=== PATIENT | female | born 1955 | race Caucasian/White ===

== ENCOUNTER 2022-04-30 14:03 | Outpatient (CLI) | payer BC, SELFPAY ==
--- NOTE | 2022-04-30 14:40 | CRLHL7_ITS ---
For Patients: As a result of the Century Cures Act, medical imaging exams and procedure reports are released immediately into your electronic medical record. You may view this report before your referring provider. If you have questions, please contact your health care provider. BILATERAL SCREENING MAMMOGRAM WITH COMPUTER-AIDED DETECTION AND TOMOSYNTHESIS TECHNIQUE: CC and MLO views were obtained. These mammographic images have been obtained using full-field digital technique. These mammographic images were interpreted with the benefit of computer-aided detection. Breast Tomosynthesis was used in this interpretation. COMPARISON FILM: 01/15/20 screen, 10/04/17 diag, 09/21/17 screen. FINDINGS: There are scattered areas of fibroglandular density IMPRESSION: There is no radiographic evidence for malignancy. ASSESSMENT: BI-RADS Category 1: Negative RECOMMENDATION: Routine screening mammogram in 1 year. A lay language report of this examination will be provided to the patient. Humberto Cooper M.D. Diagnostic Radiologist [email or web address] JERICA/Dictated by: Humberto Cooper MD @ 05/04/2022 9:26:00 AM (Electronically Signed)
== END 2022-04-30 14:04 | disposition home or self-care (01) ==
LOC: MAMMO 14:05
PROVIDERS: Visit Provider Family Medicine
DX: Z12.31 Encounter for screening mammogram for malignant neoplasm of breast (principal)
CPT/HCPCS: 77063; 77067

== ENCOUNTER 2023-04-07 08:34 | Outpatient (CLI) | payer BC, SELFPAY ==
--- NOTE | 2023-04-07 08:25 | W.ANESCHARGE ---
Anesthesia Charges Start Date/Time Anesthesia Start Date: 04/07/23 Anesthesia Start Time: 10:05 Stop Date/Time Anesthesia Stop Date: 04/07/23 Anesthesia Stop Time: 10:27
--- NOTE | 2023-04-07 10:29 | W.ANESCHARGE ---
Anesthesia Charges Start Date/Time Anesthesia Start Date: 04/07/23 Anesthesia Start Time: 10:05 Stop Date/Time Anesthesia Stop Date: 04/07/23 Anesthesia Stop Time: 10:27
== END 2023-04-07 08:35 | disposition home or self-care (01) ==
LOC: OP CLINIC 08:35
PROVIDERS: PCP Family Medicine; Visit Provider Internal Medicine
DX: Z12.11 Encounter for screening for malignant neoplasm of colon (principal); K64.8 Other hemorrhoids; K57.30 Diverticulosis of large intestine without perforation or abscess without bleeding
CPT/HCPCS: 45378; 811; 812; J2704

== ENCOUNTER 2023-06-02 13:13 | Outpatient (CLI) | payer BC, SELFPAY | END 2023-06-02 13:14 | disposition home or self-care (01) | LOC: NFLDREF 13:17 | PROVIDERS: PCP Family Medicine; Visit Provider Family Medicine | DX: Z00.00 Encounter for general adult medical examination without abnormal findings (principal); E55.9 Vitamin D deficiency, unspecified; E78.5 Hyperlipidemia, unspecified; F31.9 Bipolar disorder, unspecified; E66.01 Morbid (severe) obesity due to excess calories | CPT/HCPCS: 80053; 80061; 80164; 80165; 82306 ==

== ENCOUNTER 2023-09-28 14:54 | Outpatient (CLI) | payer BC, SELFPAY ==
--- NOTE | 2023-09-28 15:30 | CRLHL7_ITS ---
For Patients: As a result of the Century Cures Act, medical imaging exams and procedure reports are released immediately into your electronic medical record. You may view this report before your referring provider. If you have questions, please contact your health care provider. DXA BONE MINERAL DENSITY STUDY Reason for exam: Screening. Current height (in): 73. Weight (lb): 300. Menopause age: 50. Ethnicity: White. 1. Have you had a previous hip or vertebral fracture? No. 2. Have you had any fractures during your adult life which did not result from significant trauma (e.g., auto accident)? No. 3. Did either of your parents have a hip fracture? No. 4. Do you smoke? No. 5. Have you ever taken Glucocorticoids? No. 6. Do you have rheumatoid arthritis? No. 7. Do you have secondary osteoporosis? No. 8. Do you drink 3 or more alcoholic drinks per day? No. 9. Are you being treated for osteoporosis? No. 10. Have you ever taken any of the following medications: Actonel, Evista, Fosamax, Miacalcin, Reclast, Boniva, Forteo, HRT (i.e. estrogen/hormone therapy), Protelos, Prolia, Vitamin D, Calcium, other ??? please specify. ANSWER: Yes, Vitamin D. 11. Do you have any of the following medical conditions: Anorexia or bulimia, asthma or emphysema, end stage renal disease, hyperparathyroidism, any seizure disorders, cancer, inflammatory bowel diseases, hysterectomy, other ??? please specify. ANSWER: Yes, hysterectomy. 12. What was your maximum height (inches)? 73. 13. Do you perform weight bearing exercise regularly? No. 14. Do you regularly consume dairy products? Yes. 15. Do you drink caffeinated beverages? Yes. 16. At what age did your period start? 19. 17. Are you premenopausal? No. 18. How many full term pregnancies have you had? 2. 19. Have you ever missed your period for more than 6 months in a row (not including or menopause)? Not provided. TECHNIQUE: Bone mineral density study was performed using the [employer]. FINDINGS: The results of the study expressed as bone mineral density (BMD) are as follows: Lumbar spine L1 to L4: BMD: 1.400 g/cm2. T-score: 3.2. Z-score: 5.1. Neck Left: BMD: 0.744 g/cm2. T-score: -0.9. Z-score: 0.6. Total Left: BMD: 1.061 g/cm2. T-score: 1.0. Z-score: 2.3. IMPRESSION: Normal bone density. *Comparison exams done prior to 01/2020 were performed on different unit, sigmacare. Humberto Cooepr M.D. Diagnostic Radiologist [email or web address] SP/Dictated by: Humberto Cooper MD @ 09/28/2023 3:50:00 PM (Electronically Signed)
== END 2023-09-28 14:55 | disposition home or self-care (01) ==
LOC: RAD 14:54
PROVIDERS: PCP Family Medicine; Visit Provider Family Medicine
DX: Z13.820 Encounter for screening for osteoporosis (principal); Z78.0 Asymptomatic menopausal state
CPT/HCPCS: 77080

== ENCOUNTER 2023-10-03 14:00 | Outpatient (RCR) | payer BC, SELFPAY ==
--- NOTE | 2023-09-12 09:51 | PT.OPEX ---
[facility] PT [facility] Outpatient Eval Start: 09/12/23 07:24 Freq: Status: Active Protocol: Document 09/12/23 07:25 CRP (Rec: 09/12/23 09:46 CRP [id number]) E-signed By Percy Lloyd PT Physical Therapy Outpatient Evaluation Insurance Information Insurance Name [employer] Medical Diagnosis Low Back Pain Other Chronic Pain Lumbar radiculopathy Cervicalgia Treating Diagnosis Neck pain LBP Referring MD Dr Burnett Subjective Subjective Pt c/o chronic neck pain and chronic LBP. Pt has had chronic pain of neck and back for her whole adult life. Neck pain is more L than R. Some pain into the shoulders but not down the arms. No numbness or tingling. Crunching in the neck and pain with trying to sleep. Will also have headaches. Pain is worse in the mornings. 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 There is pain with ROM but movement is ok. Had cervical fusion 92 of C5-6. Intermittent LBP that will increase with sitting, bending , lifting. Pain is at the upper hip and low back. Has had a couple of years of numbness/tingling into the L thigh. Pt does go to a therapist for fascial release. This has helped but not lasting. No specific exer currently. No low back surgeries. R hip replaced 2017. Has some ongoing issues of bilateral knee pain. Neck pain range 3-9/10 LBP range 3-9/10 Current Work Status [employer] Objective Range of Motion Cervical ROM Flex WNL Ext mod dec R rot min/mod dec L rot mod dec R SB min.mod dec L SB mod dec PROM L rot and L SB show moderate restriction Trunk ROM: FLex 25% dec Ext 25% dec with LBP R SB 25% dec with LBP L SB 25% dec with LBP Bilat rot 25-50% dec Bilat hip ROM WFL Bilat knee ROM WFL Strength Myotomes WNL BIlat hip flex, abd and ext weakness noted Poor deep cervical flex and ext strength Poor scap stability Palpation Significant myofascial pain interscap region Posture Forward head/ rounded shoulders Sensation/Reflexes Sensation intact to light touch Other/Pertinent Objective Segmental testing shows painful loss of mobility L C2- [address] junction Assessment Assessment/Impression Pt presents to the clinic with long standing issues of neck and back pain. Pt shows significant postural dysfunction of upper and lower quadrant. Pts presentation is characterized by painful hypomobility of the upper cervical spine, CT junction and lower lumbar spine. With this the pt also shows significant weakness with postural control, bilateral shoulders and bilateral LEs. Skilled PT is necessary to incorporate ther ex, nm karan, manual therapy and pt education to decrease pain and improve functional mobility. Primary Functional Limitations Lifting Sitting Sleeping bending Plan of Care Rehabilitation Potential Good Physical Therapy Goals 1. Pt will be 100% independent with HEP in 8 weeks. 2. Pt will do dishes with 75% decrease in LBP in 12 weeks. 3. Pt will sleep with 75% decrease in neck pain in 12 weeks. Coordination/Communication With Referral Source Treatment Plan/Direct Interventions Joint Mobilization,Manual Therapy,Neuromuscular Re-ed, Self-Care/Home Management, Therapeutic Activities, Therapeutic Exercises Frequency/Duration 1-2x/wk for 12 weeks Patient Will Be Discharged From Therapy Completion of LTG(s),Skills Plateau,Independent w/HEP, Independently Progressing Evaluation Billing Untimed Code Treatment Minutes 30 Complexity High Certification Information Physician Comment/Change : Physician NPI Number #
== END 2023-12-15 14:47 | disposition home or self-care (01) ==
PROVIDERS: PCP Family Medicine; Visit Provider Family Medicine
DX: M54.50 Low back pain, unspecified (principal); G89.29 Other chronic pain; M54.16 Radiculopathy, lumbar region; M54.2 Cervicalgia; Z51.89 Encounter for other specified aftercare
CPT/HCPCS: 97110; 97140; 97163

== ENCOUNTER 2024-09-28 09:02 | Emergency (ER) | payer BC, SELFPAY ==
[2024-09-28 09:31] VITALS: BP 180/92; PULSE 93; RESP 16; TEMP 36.7; O2SAT 96; BMI 44.1
[2024-09-28 11:24] LABS: Lactate* 1.5 mmol/L (0.5-1.9)
--- NOTE | 2024-09-28 11:28 | ED_ITS ---
HPI - General Adult General Chief complaint: Skin/Abscess/Foreign Body Stated complaint: Suspected cellulitis. Swollen,painful ankles Time Seen by Provider: 09/28/24 10:58 Source: patient Mode of arrival: ambulatory Limitations: no limitations History of Present Illness HPI narrative: Patient is a 69-year-old female presenting today with bilateral leg pain. She states that her legs have been swelling and getting redder and more painful or the last 2 weeks. She states in the last 2 days she developed a fever of 100, chills, nausea and vomiting. She denies abdominal pain or chest pain. No diarrhea. No urinary symptoms such as frequency, urgency or dysuria Related Data Home Medications ?Medication ?Instructions ?Recorded ?Confirmed prazosin 1 mg capsule 1 mg PO .Bedtime 09/07/22 09/28/24 quetiapine 50 mg tablet 50 - 100 mg PO .Bedtime 09/07/22 09/28/24 divalproex 500 mg tablet,extended 500 mg PO .Bedtime 06/02/23 09/28/24 release 24 hr Previous Rx's ?Medication ?Instructions ?Recorded furosemide 20 mg tablet 20 mg PO QDAY PRN edema #30 tabs 04/13/23 albuterol sulfate 90 mcg/actuation 2 puff inhalation Q4-6H PRN 02/01/24 aerosol inhaler shortness of breath or wheezing #6.7 grams cetirizine 10 mg tablet (All Day 10 mg PO QDAY #90 tabs 02/01/24 Allergy (cetirizine)) amitriptyline 10 mg tablet 10 - 50 mg (1 - 5 x 10 mg) PO QDAY 05/24/24 #90 tabs clindamycin HCl 150 mg capsule 450 mg (3 x 150 mg) PO TID 7 days 09/28/24 #63 caps Allergies Allergy/AdvReac Type Severity Reaction Status Date / Time Quinolones Allergy Severe hives, Verified 05/24/24 14:19 syncope,delerium tramadol Allergy Severe respiratory Verified 05/24/24 14:19 distress per past med rec received Sulfa (Sulfonamide Allergy Mild Verified 05/24/24 14:19 Antibiotics) tetracycline Allergy Mild Rash Verified 05/24/24 14:19 Cephalosporins Allergy Unknown Verified 05/24/24 14:19 piroxicam AdvReac Intermediate Nausea Verified 05/24/24 14:19 Review of Systems Status of ROS: Reports: 10 or more systems reviewed and unremarkable except as noted in History and below PFSH [facility] Medical History Screening due ?Z13.9 - Encounter for screening, unspecified (ICD-10) Surgical History Status post total replacement of right hip ?Z96.641 - Presence of right artificial hip joint (ICD-10) Status post breast lumpectomy ?Z98.890 - Other specified postprocedural states (ICD-10) History of right breast biopsy (02/12/13) ?Z98.890 - Other specified postprocedural states (ICD-10) History of hysterectomy (11/06/12) ?Z90.710 - Acquired absence of both cervix and uterus (ICD-10) History of appendectomy (11/06/12) ?Z90.49 - Acquired absence of other specified parts of digestive tract (ICD- 10) Social History What is your current living situation?: I presently have a place to live Problems where you live: no known problems In the past 12 months, utilities in danger of being shut off: no In past 12 months, lack of transportation kept you from medical appts, meetings, work, or getting things needed for daily living: no In the past 12 mos, have been you worried that your food would run out before you had money to buy more?: never true In the past 12 mos, the food you bought just didn't last and you didn't have money to buy more?: never true Smoking Status: Never smoker How often do you have a drink containing alcohol: never How often do you have six or more drinks on one occasion: Never AUDIT-C Alcohol total score: 0 Non-prescribed substance use: denies use How often does anyone, including family, friends and others, physically hurt you : never How often does anyone, including family, friends and others, insult or talk down to you: never How often does anyone, including family, friends and others, threaten you with harm: never How often does anyone, including family, friends and others, scream or curse at you: never service: No Exam Narrative: Exam Narrative: Obese, well-developed patient in no acute distress. Alert and oriented. Answers questions appropriately. Mood and affect are appropriate. Thoughts are goal oriented and rational. No tangential or magical thinking noted. Patient speaks in full sentences without needing to catch her breath. HEENT: Normocephalic atraumatic. Pupils are equally round reactive to light. Extraocular muscles are intact. Conjunctivae are moist without any icterus noted. Moist mucous membranes. Cardiovascular: Heart is regular rate and rhythm S1 and S2 are present without any murmurs. Lungs: Clear to auscultation bilaterally no wheezes rhonchi or rales are appreciated. Patient takes deep breaths without any discomfort. Abdomen: Soft and nontender nondistended with normal bowel sounds. Extremities: Bilateral lower extremities show trace to 1+ pitting edema bilater ally. Patient has circumferential erythema of the right lower extremity around the ankle. No tenderness with motion at the ankle including active or passive range of motion. She has a blister on the left lower extremity with surrounding erythema on the medial ankle. Skin: Well perfused. Const: Vital Signs, click to edit/add: Vital Signs - 24 hr 09/28/24 09:31 Temperature 98.0 F Pulse Rate [Right Pulse Oximeter] 93 Respiratory Rate 16 Blood Pressure [Ri ght Upper Arm] 180/92 H Pulse Oximetry 96 Oxygen Delivery Me thod Room Air Course Course ED Course: Symptoms appear classic for cellulitis, other differential diagnoses includes phlebolymphedema, dermatitis. Patient is given a dose of clindamycin while she was here and she has multiple antibiotic allergies. Blood work is unremarkable. Vital Signs Vital signs: Initial Vital Signs Temperature 98.0 F 09/28/24 09:31 Temperature Source Temporal Artery Scan 09/28/24 09:31 Pulse Rate 93 09/28/24 09:31 Respiratory Rate 16 09/28/24 09:31 Blood Pressure 180/92 H 09/28/24 09:31 Blood Pressure Mean 121 H 09/28/24 09:31 Blood Pressure Position Sitting 09/28/24 09:31 Pulse Oximetry 96 09/28/24 09:31 Oxygen Delivery Method Room Air 09/28/24 09:31 Vital Signs Temperature 98.0 F 09/28/24 09:31 Pulse Rate 93 09/28/24 09:31 Respiratory Rate 16 09/28/24 09:31 Blood Pressure 180/92 H 09/28/24 09:31 Pulse Oximetry 96 09/28/24 09:31 Oxygen Delivery Method Room Air 09/28/24 09:31 Temperature 98.0 F 09/28/24 09:31 Pulse Rate 93 09/28/24 09:31 Respiratory Rate 16 09/28/24 09:31 Blood Pressure 180/92 H 09/28/24 09:31 Pulse Oximetry 96 09/28/24 09:31 Oxygen Delivery Method Room Air 09/28/24 09:31 Medications Administered Medications: Discontinued Medications Generic Name Dose Route Start Last Admin Trade Name Freq PRN Reason Stop Dose Admin Clindamycin HCl 450 mg 09/28/24 11:06 09/28/24 11:29 Clindamycin 150 Mg Capsule PO 09/28/24 11:07 450 mg ONCE ONE Administration Medical Decision Making MDM Narrative Medical decision making narrative: 69-year-old female with a right lower extremity cellulitis, infection perhaps starting in the left lower extremity as well. Lab Data Labs: Lab Results 09/28/24 Range/Units 11:19 WBC 6.96 (4.50-11.00) K/uL RBC 4.24 (4.00-5.20) m/uL Hgb 12.4 (12.0-16.0) gm/dL Hct 39.9 (33.0-51.0) % MCV 94 (80-100) fL MCH 29 (26-34) pg MCHC 31 L (32-36) gm/dL RDW Coeff of Deborah 14.4 (11.5-15.5) % Plt Count 213 (140-440) K/uL Neut % (Auto) 55.7 (42.0-72.0) % Lymph % (Auto) 27.6 (20-44) % Labette % (Auto) 13.5 H (0.0-11.0) % Eos % (Auto) 2.7 (0.0-7.0) % Baso % (Auto) 0.4 (0.0-3.0) % Neut # (Auto) 3.87 (1.7-7.0) K/uL Lymph # (Auto) 1.92 (0.90-2.90) K/uL Labette # (Auto) 0.90 (0.00-0.90) K/UL Eos # (Auto) 0.19 (0.00-0.50) K/uL Baso # (Auto) 0.03 (0.00-0.30) K/uL Abs Immat Gran (auto) 0.01 (0.00-0.30) K/uL Imm/Tot Granulo (auto) 0.1 % Sodium 142 (135-149) mmol/L Potassium 4.1 (3.6-5.1) mmol/L Chloride 104 (96-114) mmol/L Carbon Dioxide 32 (20-32) mmol/L Anion Gap 6 L (7-15) mEq/L BUN 16 (7-30) mg/dL Creatinine 0.4 L (0.5-1.5) mg/dL Estimated Creat Clear 64.98 Estimated GFR 108 ml/min Glucose 90 (60-115) mg/dL Lactate 1.5 (0.5-1.9) mmol/L Calcium 9.0 (8.4-10.6) mg/dL C-Reactive Protein 1.6 H (0.5-1.0) mg/dL NT-Pro-B Natriuret Pep 46 pg/mL Discharge Plan Discharge Clinical Impression: Cellulitis Patient Disposition: Home, Self-Care Condition: Stable Instructions: Cellulitis (ED) Additional Instructions: Take all antibiotics as prescribed. If you feel like your symptoms are worsening over the next 48 hours instead of getting better, return to the ER or follow-up with your primary care doctor. Return to the emergency room if you develop weakness, lethargy, inability to eat. Prescriptions: New clindamycin HCl 150 mg capsule 450 mg PO TID 7 Days Qty: 63 0RF No Action prazosin 1 mg capsule 1 mg PO .Bedtime quetiapine 50 mg tablet 50 - 100 mg PO .Bedtime Rx Instructions: 1-2 tablets at bedtime divalproex 500 mg tablet extended release 24 hr 500 mg PO .Bedtime albuterol sulfate 90 mcg/actuation HFA aerosol inhaler 2 puff inhalation Q4-6H PRN (Reason: shortness of breath or wheezing) Qty: 6.7 1RF cetirizine [All Day Allergy (cetirizine)] 10 mg tablet 10 mg PO QDAY Qty: 90 3RF amitriptyline 10 mg tablet 10 - 50 mg PO QDAY Qty: 90 3RF furosemide 20 mg tablet 20 mg PO QDAY PRN (Reason: edema) Qty: 30 0RF Follow Up/Referrals: Oswaldo Burnett MD [Primary Care Provider] - Stand Alone Forms: [employer] Info Instructions
[2024-09-28] MEDS: CLINDAMYCIN 150 MG CAPSULE 450 MG PO (11:29)
[2024-09-28 11:30] LABS: Basophils Absolute Auto 0.03 K/uL (0.00-0.30); Basophils Percent Auto 0.4 % (0.0-3.0); Eosinophils Absolute Auto 0.19 K/uL (0.00-0.50); Eosinophils Percent Auto 2.7 % (0.0-7.0); Hematocrit 39.9 % (33.0-51.0); Hemoglobin* 12.4 gm/dL (12.0-16.0); Immature Granulocytes Abs Auto 0.01 K/uL (0.00-0.30); Immature Granulocytes Pct Auto 0.1 %; Lymphocytes Absolute Auto 1.92 K/uL (0.90-2.90); Lymphocytes Percent Auto 27.6 % (20-44); Mean Corpuscular HGB Conc 31 gm/dL (32-36); Mean Corpuscular Hemoglobin 29 pg (26-34); Mean Corpuscular Volume 94 fL (80-100); Monocytes Percent Auto 13.5 % (0.0-11.0); Neutrophils Absolute Auto 3.87 K/uL (1.7-7.0); Neutrophils Percent Auto 55.7 % (42.0-72.0); Platelet Count* 213 K/uL (140-440); RDW Coefficient of Variation % 14.4 % (11.5-15.5); Red Blood Count 4.24 m/uL (4.00-5.20); White Blood Count* 6.96 K/uL (4.50-11.00)
[2024-09-28 11:36] LABS: Slide Review Reflex No
[2024-09-28 11:44] LABS: Chloride* 104 mmol/L (96-114); Potassium* 4.1 mmol/L (3.6-5.1); Sodium* 142 mmol/L (135-149)
[2024-09-28 11:47] LABS: Creatinine* 0.4 mg/dL (0.5-1.5); Est. Creatinine Clearance* 64.98; Estimated Glomerular Filt Rate 108 ml/min
[2024-09-28 11:48] LABS: Anion Gap 6 mEq/L (7-15); Blood Urea Nitrogen* 16 mg/dL (7-30); Carbon Dioxide* 32 mmol/L (20-32); Glucose* 90 mg/dL (60-115)
[2024-09-28 11:51] LABS: C Reactive Protein* 1.6 mg/dL (0.5-1.0)
[2024-09-28 12:07] LABS: NT Pro B Type NatriureticPept* 46 pg/mL
[2024-09-28 12:40] LABS: PCR FLU A Negative PCR FLU A (Negative); PCR FLU B Negative PCR FLU B (Negative); SARS PCR* Negative SARS-CoV-2 (Negative)
== END 2024-09-28 12:25 | disposition home or self-care (01) ==
PROVIDERS: Emergency Provider Family Medicine; PCP Family Medicine
DX: L03.115 Cellulitis of right lower limb (principal); L03.116 Cellulitis of left lower limb
CPT/HCPCS: 36415; 80048; 83605; 83880; 85025; 86140; 87631; 99283; 99284; A9270

== ENCOUNTER 2025-01-22 09:54 | Outpatient (CLI) | payer BC, SELFPAY | END 2025-01-22 09:55 | disposition home or self-care (01) | LOC: NFLDREF 01-24 17:50 | PROVIDERS: PCP Family Medicine; Referring Provider Family Medicine; Visit Provider Family Medicine | DX: E78.5 Hyperlipidemia, unspecified (principal); F31.9 Bipolar disorder, unspecified; Z51.81 Encounter for therapeutic drug level monitoring | CPT/HCPCS: 80061; 80164; 80165 ==

== ENCOUNTER 2025-01-28 17:45 | Emergency (ER) | payer BC, SELFPAY ==
--- OUTSIDE RECORDS SUMMARY | 2025-01-28 17:48 | XMS_ITS | Clinical Summary ---
Author Organization [facility] Address [address], [place] [address] Care Team Providers Care Senior Teradata Developer Name Role Phone Oswaldo Burnett MD Primary Care Provider + [phone] Source Comments You are receiving this document as you are listed as the primary care provider,follow-up provider, or the patient has been referred to you for consultation.This is in compliance with the Medicare and[facility]centive [facility],which states Providers who transition their patient to another setting of careor provider of care or refers their patient to another provider of care shouldprovide summary care record for each transition of care or referral. Kera Encounters Date Type Department Care Team Description 11/02/2024 12:15 AM SHIP SURVEYOR Ancillary Procedure [facility] [address] [place] [address] 11/02/2024 12:10 AM SHIP SURVEYOR Ancillary Procedure [facility] [address] [place] [address] 11/02/2024 12:05 AM SHIP SURVEYOR Ancillary Procedure [facility] [address] [place] [address] 11/02/[address] [facility] [address] [place] [address] 11/01/2024 10:50 PM SHIP SURVEYOR Ancillary Procedure [facility] [address] [place] [id number] 11/01/2024 10:29 PM SHIP SURVEYOR - 11/02/2024 1:41 AM SHIP SURVEYOR [facility] [address] [place] [id number] Jose Carlton MD Blunt trauma to abdomen, initial encounter (Primary Dx); Acute pain of both knees; Fall down stairs, initial encounter; Back pain, unspecified back location, unspecified back pain laterality, unspecified chronicity; Neck pain; Cellulitis of right lower extremity Discharge Disposition: Home from Last 3 Months Social History Tobacco Use Types Packs/Day Years Used Date Smoking Tobacco: Never Assessed Humiliation, Afraid, Rape, and Kick questionnair e Answer Date Recorded Within the last year, have y ou been afraid of your partner or ex-partner? No 11/02/2024 Within the last year, have y ou been humiliated or emotionally abused in other ways by your partner or ex-partner? No Within the last year, have y ou been kicked, hit, slapped, or otherwise physically hurt by your partner or ex-partner? No 11/02/2024 Within the last year, have y ou been raped or forced to have any kind of sexual activity by your partner or ex-partner? No 11/02/2024 Comments No Sex and Gender Information Value Date Recorded Sex Assigned at Not on file Legal Sex Female 10:29 PM SHIP SURVEYOR Gender Identity Not on file Sexual Orientation Not on file Last Filed Vital Signs Vital Sign Reading Time Taken Comments Blood Pressure 129/69 11/02/2024 12:42 AM SHIP SURVEYOR Pulse 82 11/02/2024 12:43 AM SHIP SURVEYOR Temperature 36.8 C (98.2 F) 11/01/2024 10:43 PM SHIP SURVEYOR Respiratory Rate 20 11/01/2024 10:43 PM SHIP SURVEYOR Oxygen Saturation 97% 11/02/2024 12:42 AM SHIP SURVEYOR Inhaled Oxygen Concentration - - Weight 156 kg (344 lb) 11/01/2024 10:43 PM SHIP SURVEYOR Height 185.4 cm (6' 1) 11/01/2024 10:43 PM SHIP SURVEYOR Body Mass Index 45.39 11/01/2024 10:43 PM SHIP SURVEYOR Plan of Treatment Health Maintenance Due Date Last Done Comments Colon Cancer Screening Plan Due 1957 Diabetes Screening- (based o n age and BMI) 1957 Hep C Screening (Preventive Services) 1957 Mammogram 1957 Adult Preventive Visit 1975 DTaP/Tdap/Td Vaccine (1 - Tdap) 1976 Cholesterol 2002 Pneumococcal Vaccine 50+ Yrs (1 of 1 - PCV) 2007 Zoster/Shingles Vaccine (1 of 2) 2007 RSV Vaccine (1 - Risk 60-74 years 1-dose series) 2017 Dexa 2022 COVID-19 Vaccine (1 - 2023-2 5 season) 2024 Influenza Vaccine (Season Ended) 2025 HepA Vaccine Aged Out No longer eligi ble based on patient's age to complete this topic HepB Vaccine Aged Out No longer eligi ble based on patient's age to complete this topic Hib Vaccine Aged Out No longer eligi ble based on patient's age to complete this topic IPV (Polio) Vaccine Aged Out No longe r eligible based on patient's age to complete this topic MCV4 Vaccine Aged Out No longer eligi ble based on patient's age to complete this topic Meningococcal B Vaccine Aged Out No l onger eligible based on patient's age to complete this topic Procedures Procedure Name Priority Date/Time Associated Diagnosis Comments CT LUMBAR 2D RECONSTRUCTION STAT 11/02/2024 12:[address] THORSPINE RECONSTRUCTION STAT 11/02/2024 12:[address] ANGIO CHEST AND CT ABD PELVIS W IV CONT STAT 11/02/2024 12:[address] TRAUMA CERVICAL SCREEN T4-C1 STAT 11/02/2024 12:33 AM SHIP SURVEYOR CREATININE/GFR, WB POC Routine 11:42 PM SHIP SURVEYOR XR KNEE LT AP/MO/LAT (TRAUMA) STAT 11/01/2024 11:35 PM SHIP SURVEYOR XR KNEE RT AP/MO/LAT (TRAUMA) STAT 11/01/2024 11:35 PM SHIP SURVEYOR COMPLETE BLOOD COUNT-NO DIFF STAT 11/01/2024 11:09 PM SHIP SURVEYOR from Last 3 Months Results * CT Lumbar 2D Reconstruction (11/02/2024 12:45 AM SHIP SURVEYOR) Anatomical Region Laterality Modality T-Spine, Spine, Skeletal Compute d Tomography 11/02/2024 12:4 5 AM SHIP SURVEYOR Narrative 11/02/2024 12:52 AM SHIP SURVEYOR EXAM: CT LUMBAR 2D RECONSTRUCTION, CT THORSPINE RECONSTRUCTION LOCATION: [facility] DATE: 11/02/2024 INDICATION: Traumatic injury. COMPARISON: None. TECHNIQUE: Routine CT Lumbar thoracic and Spine without IV contrast. Multiplanar reformats. Dose reduction techniques were used. FINDINGS: VERTEBRA: Normal vertebral body heights and alignment. No fracture or posttraumatic subluxation. Benign T9 vertebral body hemangioma. CANAL/FORAMINA: No high-grade canal or neural foraminal stenosis. PARASPINAL: Please see dedicated CT chest abdomen pelvis for further findings. IMPRESSION: 1. No fracture or posttraumatic subluxation of the thoracic or lumbar spine. Procedure Note Leo Blood MD - 11/02/2024 EXAM: CT LUMBAR 2D RECONSTRUCTION, CT THORSPINE RECONSTRUCTION LOCATION: [facility] DATE: 11/02/2024 INDICATION: Traumatic injury. COMPARISON: None. TECHNIQUE: Routine CT Lumbar thoracic and Spine without IV contrast.Multiplanar reformats. Dose reduction techniques were used. FINDINGS: VERTEBRA: Normal vertebral body heights and alignment. No fracture orposttraumatic subluxation. Benign T9 vertebral body hemangioma. CANAL/FORAMINA: No high-grade canal or neural foraminal stenosis. PARASPINAL: Please see dedicated CT chest abdomen pelvis for furtherfindings. IMPRESSION: 1. No fracture or posttraumatic subluxation of the thoracic or lumbarspine. Jose Carlton MD RAD CT Final Result * CT Thorspine Reconstruction (11/02/2024 12:45 AM SHIP SURVEYOR) Anatomical Region Laterality Modality T-Spine, Spine, Skeletal Compute d Tomography 11/02/2024 12:4 5 AM SHIP SURVEYOR Narrative 11/02/2024 12:52 AM SHIP SURVEYOR EXAM: CT LUMBAR 2D RECONSTRUCTION, CT THORSPINE RECONSTRUCTION LOCATION: [facility] DATE: 11/02/2024 INDICATION: Traumatic injury. COMPARISON: None. TECHNIQUE: Routine CT Lumbar thoracic and Spine without IV contrast. Multiplanar reformats. Dose reduction techniques were used. FINDINGS: VERTEBRA: Normal vertebral body heights and alignment. No fracture or posttraumatic subluxation. Benign T9 vertebral body hemangioma. CANAL/FORAMINA: No high-grade canal or neural foraminal stenosis. PARASPINAL: Please see dedicated CT chest abdomen pelvis for further findings. IMPRESSION: 1. No fracture or posttraumatic subluxation of the thoracic or lumbar spine. Procedure Note Leo Blood MD - 11/02/2024 EXAM: CT LUMBAR 2D RECONSTRUCTION, CT THORSPINE RECONSTRUCTION LOCATION: [facility] DATE: 11/02/2024 INDICATION: Traumatic injury. COMPARISON: None. TECHNIQUE: Routine CT Lumbar thoracic and Spine without IV contrast.Multiplanar reformats. Dose reduction techniques were used. FINDINGS: VERTEBRA: Normal vertebral body heights and alignment. No fracture orposttraumatic subluxation. Benign T9 vertebral body hemangioma. CANAL/FORAMINA: No high-grade canal or neural foraminal stenosis. PARASPINAL: Please see dedicated CT chest abdomen pelvis for furtherfindings. IMPRESSION: 1. No fracture or posttraumatic subluxation of the thoracic or lumbarspine. Jose Carlton MD RAD CT Final Result * CT Angio Chest And CT Abd Pelvis W IV Cont (11/02/2024 12:42 AM SHIP SURVEYOR) Anatomical Region Laterality Modality Abdomen, Pelvis, Chest, Lung, Vascular Computed Tomography 11/02/2024 12:4 2 AM SHIP SURVEYOR Narrative 11/02/2024 12:55 AM SHIP SURVEYOR EXAM: CT ANGIO CHEST AND CT ABD PELVIS W IV CONT LOCATION: [facility] DATE: 11/02/2024 INDICATION: Trauma. COMPARISON: None available. TECHNIQUE: CT angiogram chest and routine CT abdomen pelvis with IV contrast. Arterial phase through the chest and venous phase through the abdomen and pelvis. 2D and 3D MIP reconstructions were preformed by the dental technologist. Dose reduction techniques were used. CONTRAST: IOHEXOL 350 MG/ML IV SOLN 125 mL FINDINGS: ANGIOGRAM CHEST: No evidence of thoracic aortic aneurysm or dissection. No significant atheromatous disease. No acute pulmonary embolism. LUNGS AND PLEURA: Trachea and large airways are patent. Mild dependent atelectatic change. Left lower lobe calcified granuloma. Few sub-6 mm pulmonary nodules. No pneumothorax. No pleural effusion. MEDIASTINUM/AXILLAE: No mediastinal/hilar lymphadenopathy. Thoracic esophagus is unremarkable. No axillary lymphadenopathy. Chest wall is unremarkable. Mild left atrial enlargement. No pericardial effusion. Tiny air embolus within the right ventricle, likely iatrogenic. CORONARY ARTERY CALCIFICATION: None. HEPATOBILIARY: Mild hepatomegaly. Low-attenuation subcentimeter liver lesion(s) compatible with benign cysts or other benign lesions. No specific evaluation or follow-up is recommended in a low risk patient. Gallbladder is normal. No intrahepatic or intrahepatic biliary ductal dilatation. PANCREAS: Enhances normally. No peripancreatic inflammatory fat stranding. SPLEEN: Enhances normally. Normal size. ADRENAL GLANDS: Normal. KIDNEYS: Both kidneys enhance symmetrically, without hydronephrosis. Bilateral parapelvic and simple parenchymal cysts; no further follow-up recommended. No nephroureterolithiasis. Urinary bladder is unremarkable. PELVIC ORGANS: Hysterectomy. BOWEL: No evidence of acute gastrointestinal inflammation or obstruction. Colonic diverticulosis. Normal appendix. No intraperitoneal free fluid or free air. Moderate-sized fat-containing right of midline periumbilical hernia. LYMPH NODES: No suspicious abdominal or pelvic lymphadenopathy. VASCULATURE: No abdominal aortic aneurysm. Mild atheromatous disease. MUSCULOSKELETAL: Right hip arthroplasty. Prominent hemangioma of the T10 vertebral body. OTHER: No additionally significant abnormalities. IMPRESSION: 1. No acute posttraumatic abnormality of the chest, abdomen, or pelvis. 2. Mild hepatomegaly. 3. Colonic diverticulosis. 4. Few sub-6 mm pulmonary nodules. Follow-up is recommended according to Fleischner criteria, as detailed below. Fleischner Society Recommendations for Pulmonary Nodules Nodule size less than 6 mm: Single or multiple nodules: Nodules < 6 mm do not require routine follow-up, but certain patients at high risk with suspicious nodule morphology, upper lobe location, or both may warrant 12- month follow-up. Procedure Note Cornelius Ralph MD - 11/02/2024 EXAM: CT ANGIO CHEST AND CT ABD PELVIS W IV CONT LOCATION: [facility] DATE: 11/02/2024 INDICATION: Trauma. COMPARISON: None available. TECHNIQUE: CT angiogram chest and routine CT abdomen pelvis with IVcontrast. Arterial phase through the chest and venous phase through theabdomen and pelvis. 2D and 3D MIP reconstructions were preformed by the CTtechnologist. Dose reduction techniques were used. CONTRAST: IOHEXOL 350 MG/ML IV SOLN 125 mL FINDINGS: ANGIOGRAM CHEST: No evidence of thoracic aortic aneurysm or dissection. Nosignificant atheromatous disease. No acute pulmonary embolism. LUNGS AND PLEURA: Trachea and large airways are patent. Mild dependentatelectatic change. Left lower lobe calcified granuloma. Few sub-6 mm pulmonary nodules. No pneumothorax. No pleural effusion. MEDIASTINUM/AXILLAE: No mediastinal/hilar lymphadenopathy. Thoracic esophagus is unremarkable. No axillary lymphadenopathy. Chest wall is unremarkable. Mild left atrial enlargement. No pericardial effusion. Tiny air emboluswithin the right ventricle, likely iatrogenic. CORONARY ARTERY CALCIFICATION: None. HEPATOBILIARY: Mild hepatomegaly. Low-attenuation subcentimeter liverlesion(s) compatible with benign cysts or other benign lesions. Nospecific evaluation or follow-up is recommended in a low risk patient. Gallbladder is normal. No intrahepatic or intrahepatic biliary ductal dilatation. PANCREAS: Enhances normally. No peripancreatic inflammatory fatstranding. SPLEEN: Enhances normally. Normal size. ADRENAL GLANDS: Normal. KIDNEYS: Both kidneys enhance symmetrically, without hydronephrosis.Bilateral parapelvic and simple parenchymal cysts; no further follow-uprecommended. No nephroureterolithiasis. Urinary bladder is unremarkable. PELVIC ORGANS: Hysterectomy. BOWEL: No evidence of acute gastrointestinal inflammation or obstruction.Colonic diverticulosis. Normal appendix. No intraperitoneal free fluid or free air. Moderate-sized fat-containingright of midline periumbilical hernia. LYMPH NODES: No suspicious abdominal or pelvic lymphadenopathy. VASCULATURE: No abdominal aortic aneurysm. Mild atheromatous disease. MUSCULOSKELETAL: Right hip arthroplasty. Prominent hemangioma of the [id number] body. OTHER: No additionally significant abnormalities. IMPRESSION: 1. No acute posttraumatic abnormality of the chest, abdomen, or pelvis. 2. Mild hepatomegaly. 3. Colonic diverticulosis. 4. Few sub-6 mm pulmonary nodules. Follow-up is recommended according toFleischner criteria, as detailed below. Fleischner Society Recommendations for Pulmonary Nodules Nodule size less than 6 mm: Single or multiple nodules: Nodules < 6 mm do not require routine follow-up, but certain patients athigh risk with suspicious nodule morphology, upper lobe location, or bothmay warrant 12- month follow-up. us Jose Carlton MD RAD CT Final Result * CT Trauma Cervical Screen T4-C1 (11/02/2024 12:33 AM SHIP SURVEYOR) Anatomical Region Laterality Modality Spine, Neck, Skeletal, C-Spine C omputed Tomography 11/02/2024 12:3 3 AM SHIP SURVEYOR Narrative 11/02/2024 12:38 AM SHIP SURVEYOR EXAM: CT TRAUMA CERVICAL SCREEN T4-C1 LOCATION: [facility] DATE: 11/02/2024 INDICATION: Traumatic injury COMPARISON: None. TECHNIQUE: Routine CT Cervical Spine without IV contrast. Multiplanar reformats. Dose reduction techniques were used. FINDINGS: VERTEBRA: Normal vertebral body heights and alignment. No fracture or posttraumatic subluxation. Fusion across C5-C6. CANAL/FORAMINA: Multilevel spondylosis without high grade canal stenosis. PARASPINAL: No extraspinal abnormality. Visualized lung daugherty are clear. IMPRESSION: 1. No CT evidence for acute fracture or post traumatic subluxation. Procedure Note Leo Blood MD - 11/02/2024 EXAM: CT TRAUMA CERVICAL SCREEN T4-C1 LOCATION: [facility] DATE: 11/02/2024 INDICATION: Traumatic injury COMPARISON: None. TECHNIQUE: Routine CT Cervical Spine without IV contrast. Multiplanarreformats. Dose reduction techniques were used. FINDINGS: VERTEBRA: Normal vertebral body heights and alignment. No fracture orposttraumatic subluxation. Fusion across C5-C6. CANAL/FORAMINA: Multilevel spondylosis without high grade canalstenosis. PARASPINAL: No extraspinal abnormality. Visualized lung daugherty areclear. IMPRESSION: 1. No CT evidence for acute fracture or post traumatic subluxation. us Jose Carlton MD RAD CT Final Result * (ABNORMAL) Creatinine/GFR, WB POC (11/01/2024 11:42 PM SHIP SURVEYOR) Creatinine, Whole Blood 0.5(L) 0.6 - 1.0 mg/dL 11/01/2024 11:49 PM SHIP SURVEYOR [facility] Performing Location [facility] C 11/01/2024 11:49 PM SHIP SURVEYOR [facility] GFR, Estimated >60 >60 mL/min/1.7 3m2 11/01/2024 11:49 PM SHIP SURVEYOR [facility] Blood 11/01/2024 11:4 2 PM SHIP SURVEYOR 11/01/2024 11:49 PM SHIP SURVEYOR us Jose Carlton MD LAB_[email or web address] Final Result [facility] [address] [place] [address], [facility] * XR Knee Lt AP/MO/Lat (Trauma) (11/01/2024 11:35 PM SHIP SURVEYOR) Anatomical Region Laterality Modality Lower Extremity, Knee Computed R adiography 11/01/2024 11:3 5 PM SHIP SURVEYOR Narrative 11/01/2024 11:48 PM SHIP SURVEYOR EXAM: XR KNEE LT AP/MO/LAT (TRAUMA) LOCATION: [facility] DATE: 11/01/2024 INDICATION: Fracture, TRAUMA COMPARISON: None. IMPRESSION: Mild osteopenia. 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 No acute, displaced fracture. Trace suprapatellar knee joint effusion. Procedure Note Newton Green MD - 11/01/2024 EXAM: XR KNEE LT AP/MO/LAT (TRAUMA) LOCATION: [facility] DATE: 11/01/2024 INDICATION: Fracture, TRAUMA COMPARISON: None. IMPRESSION: Mild osteopenia. Tricompartmental osteoarthritis, worst in thepatellofemoral compartment. No acute, displaced fracture. Tracesuprapatellar knee joint effusion. us Jose Carlton MD RAD GD Final Result * XR Knee Rt AP/MO/Lat (Trauma) (11/01/2024 11:35 PM SHIP SURVEYOR) Anatomical Region Laterality Modality Lower Extremity, Knee Computed R adiography 11/01/2024 11:3 5 PM SHIP SURVEYOR Narrative 11/01/2024 11:49 PM SHIP SURVEYOR EXAM: XR KNEE RT AP/MO/LAT (TRAUMA) LOCATION: [facility] DATE: 11/01/2024 INDICATION: Fracture, TRAUMA COMPARISON: None. IMPRESSION: Mild osteopenia. Tricompartmental arthritic change, worst in the patellofemoral compartment. No acute, displaced fracture or dislocation. No significant knee joint effusion. Procedure Note Newton Green MD - 11/01/2024 EXAM: XR KNEE RT AP/MO/LAT (TRAUMA) LOCATION: [facility] DATE: 11/01/2024 INDICATION: Fracture, TRAUMA COMPARISON: None. IMPRESSION: Mild osteopenia. Tricompartmental arthritic change, worst inthe patellofemoral compartment. No acute, displaced fracture ordislocation. No significant knee joint effusion. Jose Carlton MD RAD GD Final Result * Complete Blood Count no Diff (11/01/2024 11:09 PM SHIP SURVEYOR) WBC 9.3 3.5 - 10.5 x10(9)/L 11/01/2024 11:28 PM [facility] RBC 4.57 3.90 - 5.03 x10(12)/L 11/01/2024 11:28 PM [facility] Hemoglobin 13.2 12.0 - 15.5 g/dL 11/01/2024 11:28 PM [facility] HCT 41.4 34.9 - 44.5 % 11/01/2024 11:28 PM [facility] MCV 90.6 80.0 - 100.0 fL 11/01/2024 11:28 PM [facility] MCH 28.9 27.6 - 33.3 pg 11/01/2024 11:28 PM [facility] MCHC 31.9 31.5 - 35.2 g/dL 11/01/2024 11:28 PM [facility] RDW 13.9 11.9 - 15.5 % 11/01/2024 11:28 PM [facility] Platelets 208 150 - 450 x10(9)/L 11/01/2024 11:28 PM [facility] Automated NRBC 0 <=0 /100 WBC 11/01/2024 11:28 PM [facility] Blood Venipuncture / Unknown 11/01/2024 11:09 PM SHIP SURVEYOR 11/01/2024 11:24 PM SHIP SURVEYOR Jose Carlton MD LAB_1 Final Result [address] [address], [facility] from Last 3 Months Insurance MEDICARE PART A [facility] Care Teams Senior Teradata Developer Relationship Specialty Start Date End Date Oswaldo Burnett MD [address] [place] [address] PCP - General 11/02/24
[2025-01-28 18:12] VITALS: BP 165/106; PULSE 77; RESP 18; TEMP 36.4; O2SAT 98; BMI 43.3
--- NOTE | 2025-01-28 19:27 | ED.ANIMALBIT ---
HPI - Animal Bite General Time Seen by Provider: 19:27 Date Seen: 01/28/25 Chief Complaint: Animal Bite Stated Complaint: Cat bite Time Seen by Provider: 01/28/25 19:10 Source: patient and RN notes reviewed Mode of arrival: ambulatory Limitations: no limitations History of Present Illness HPI narrative: This 69-year-old female is coming into the ER with concern of cat bite. Patient has a kitten that his never been outside that bit her today. It bit her in the back of the neck around 4:00 p.m.. She has scratches elsewhere on her body from the skin. He is not ill, acting normally. He is going to the vent tomorrow for his 1st immunizations and vent appointment. She will discuss with the vet further. She is concerned as she has had cat bite infections. She is not allergic to penicillin. Her tetanus is up-to-date in 2023. MD complaint: animal bite Related Data Home Medications ?Medication ?Instructions ?Recorded ?Confirmed prazosin 1 mg capsule 1 mg PO .Bedtime 09/07/22 01/28/25 quetiapine 50 mg tablet 50 - 100 mg PO .Bedtime 09/07/22 01/28/25 divalproex 500 mg tablet,extended 500 mg PO .Bedtime 06/02/23 01/28/25 release 24 hr olanzapine 10 mg tablet 10 mg PO QDAY 01/22/25 01/28/25 Previous Rx's ?Medication ?Instructions ?Recorded furosemide 20 mg tablet 20 mg PO QDAY PRN edema #30 tabs 04/13/23 albuterol sulfate 90 mcg/actuation 2 puff inhalation Q4-6H PRN 02/01/24 aerosol inhaler shortness of breath or wheezing #6.7 grams cetirizine 10 mg tablet (All Day 10 mg PO QDAY #90 tabs 02/01/24 Allergy (cetirizine)) semaglutide (weight loss) 0.25 0.25 mg (0.5 mL) subcut QWEEK #2 mL 01/22/25 mg/0.5 mL subcutaneous pen injector Allergies Allergy/AdvReac Type Severity Reaction Status Date / Time Quinolones Allergy Severe hives, Verified 01/28/25 18:09 syncope,delerium tramadol Allergy Severe respiratory Verified 01/28/25 18:09 distress per past med rec received Sulfa (Sulfonamide Allergy Mild Verified 01/28/25 18:09 Antibiotics) tetracycline Allergy Mild Rash Verified 01/28/25 18:09 Cephalosporins Allergy Unknown Verified 01/28/25 18:09 piroxicam AdvReac Intermediate Nausea Verified 01/28/25 18:09 Review of Systems Narrative: As per HPI. [facility] Medical History Screening due ?Z13.9 - Encounter for screening, unspecified (ICD-10) Surgical History Status post total replacement of right hip ?Z96.641 - Presence of right artificial hip joint (ICD-10) Status post breast lumpectomy ?Z98.890 - Other specified postprocedural states (ICD-10) History of right breast biopsy (02/12/13) ?Z98.890 - Other specified postprocedural states (ICD-10) History of hysterectomy (11/06/12) ?Z90.710 - Acquired absence of both cervix and uterus (ICD-10) History of appendectomy (11/06/12) ?Z90.49 - Acquired absence of other specified parts of digestive tract (ICD-10) Family History Father Prostate cancer Diabetes Pacemaker Mother Urethral cancer Brother Alcohol dependence Drug dependence Social History Narrative: From 11/28/24 OV note: , 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 Two children, Grandchild in [place], (2024) one daughter is living with her to save money to go back to school. Another daughter in [place]. Sounds like a bit astranged from siblings, both parents . What is your current living situation?: I presently have a place to live Problems where you live: no known problems In the past 12 months, utilities in danger of being shut off: no In past 12 months, lack of transportation kept you from medical appts, meetings, work, or getting things needed for daily living: no In the past 12 mos, have been you worried that your food would run out before you had money to buy more?: never true In the past 12 mos, the food you bought just didn't last and you didn't have money to buy more?: never true Smoking Status: Never smoker How often do you have a drink containing alcohol: monthly or less How often do you have six or more drinks on one occasion: Never AUDIT-C Alcohol total score: 1 Non-prescribed substance use: denies use How often does anyone, including family, friends and others, physically hurt you: never How often does anyone, including family, friends and others, insult or talk down to you: never How often does anyone, including family, friends and others, threaten you with harm: never How often does anyone, including family, friends and others, scream or curse at you: never service: No Exam Const: Vital Signs, click to edit/add: Vital Signs - 24 hr 01/28/25 18:12 Temperature 97.5 F L Pulse Rate [Pulse Oximeter] 77 Respiratory Rate 18 Blood Pressure [Le ft Forearm] 165/106 H Pulse Oximetry 98 Oxygen Delivery Me thod Room Air This very pleasant 69-year-old female is alert, interactive, no apparent distress. CV regular rate and rhythm, soft 1 to 2/6 systolic murmur, normal S1-S2, no S3-S4 heard. She has got a few scratches with scabs on her right lower extremity, a few on her right forearm. She has 2 punctate ocampo on her right posterior base of her neck that have some bruising around them, no bleeding, no significant erythema. Documenting provider has reviewed patient's vital signs: yes Course Course ED Course: It sounds like this animals low risk for rabies. She will discuss this further with her vet tomorrow and if concerns can return for rabies immune globulin and initiation of rabies series. Will give her wound prophylaxis with Augmentin. She understands she still needs to watch for infection, if she would develop infection through the Augmentin, would necessitate IV antibiotics. Vital Signs Vital signs: Initial Vital Signs Temperature 97.5 F L 01/28/25 18:12 Temperature Source Temporal Artery Scan 01/28/25 18:12 Pulse Rate 77 01/28/25 18:12 Pulse Rhythm Regular 01/28/25 18:12 Respiratory Rate 18 01/28/25 18:12 Blood Pressure 165/106 H 01/28/25 18:12 Blood Pressure Mean 125 H 01/28/25 18:12 Blood Pressure Position Sitting 01/28/25 18:12 Pulse Oximetry 98 01/28/25 18:12 Oxygen Delivery Method Room Air 01/28/25 18:12 Vital Signs Temperature 97.5 F L 01/28/25 18:12 Pulse Rate 77 01/28/25 18:12 Respiratory Rate 18 01/28/25 18:12 Blood Pressure 165/106 H 01/28/25 18:12 Pulse Oximetry 98 01/28/25 18:12 Oxygen Delivery Method Room Air 01/28/25 18:12 Temperature 97.5 F L 01/28/25 18:12 Pulse Rate 77 01/28/25 18:12 Respiratory Rate 18 01/28/25 18:12 Blood Pressure 165/106 H 01/28/25 18:12 Pulse Oximetry 98 01/28/25 18:12 Oxygen Delivery Method Room Air 01/28/25 18:12 Discharge Plan Discharge Clinical Impression: Cat bite Qualifiers: Encounter type: initial encounter Qualified Code(s): W55.01XA - Bitten by cat, initial encounter Patient Disposition: Home, Self-Care Condition: Stable Instructions: Animal Bite (ED) Additional Instructions: If the staff midwife has any concerns about this animal possibly caring/having rabies, return to the ER for rabies immune globulin and rabies vaccines. Is my feeling that this is a very low risk animal but if the vet disagrees, please return for rabies immune globulin and prophylaxis. We will start Augmentin for prevention of infection. If you do develop infection while on the Augmentin, need to be re-evaluated and consideration for IV antibiotics needs to be entertained. Wash the wounds daily with soap and water, can use some bacitracin and bandages as needed. Augmentin will be 875 mg orally twice a day for 5 days for wound prophylaxis from animal bite. Prescriptions: No Action prazosin 1 mg capsule 1 mg PO .Bedtime quetiapine 50 mg tablet 50 - 100 mg PO .Bedtime Rx Instructions: 1-2 tablets at bedtime divalproex 500 mg tablet extended release 24 hr 500 mg PO .Bedtime albuterol sulfate 90 mcg/actuation HFA aerosol inhaler 2 puff inhalation Q4-6H PRN (Reason: shortness of breath or wheezing) Qty: 6.7 1RF cetirizine [All Day Allergy (cetirizine)] 10 mg tablet 10 mg PO QDAY Qty: 90 3RF olanzapine 10 mg tablet 10 mg PO QDAY semaglutide (weight loss) 0.25 mg/0.5 mL pen injector 0.25 mg subcut QWEEK Qty: 2 0RF Rx Instructions: administer weeks 1 through 4 of therapy furosemide 20 mg tablet 20 mg PO QDAY PRN (Reason: edema) Qty: 30 0RF Follow Up/Referrals: Oswaldo Burnett MD [Primary Care Provider, Family Practice] Stand Alone Forms: [employer] Info Instructions
== END 2025-01-28 19:48 | disposition home or self-care (01) ==
PROVIDERS: Emergency Provider Family Medicine; PCP Family Medicine
DX: S11.95XA Open bite of unspecified part of neck, initial encounter (principal); W55.01XA Bitten by cat, initial encounter
CPT/HCPCS: 99282; 99283

== ENCOUNTER 2025-05-09 15:14 | Outpatient (CLI) | payer BC, SELFPAY ==
--- NOTE | 2025-05-09 15:20 | CRLHL7_ITS ---
For Patients: As a result of the Century Cures Act, medical imaging exams and procedure reports are released immediately into your electronic medical record. You may view this report before your referring provider. If you have questions, please contact your health care provider. INDICATION: BILATERAL SCREENING MAMMOGRAM, ASYMPTOMATIC 69 Y/O FEMALE COMPARISON: 04/30/2022, 09/28/2017, 09/21/2017 TECHNIQUE: Digital mammogram in CC and MLO projections including computer-aided detection (CAD) and tomosynthesis. BREAST COMPOSITION: There are scattered areas of fibroglandular density. FINDINGS: No suspicious findings. ASSESSMENT: BI-RADS 1 Negative RECOMMENDATION: Annual screening mammogram. A lay language report of this examination will be provided to the patient. Dictated by: Kayla Garcia MD @ 05/10/2025 08:28:34 (Electronically Signed)
== END 2025-05-09 15:15 | disposition home or self-care (01) ==
LOC: MAMMO 15:14
PROVIDERS: PCP Family Medicine; Visit Provider Family Medicine
DX: Z12.31 Encounter for screening mammogram for malignant neoplasm of breast (principal)
CPT/HCPCS: 77063; 77067

== ENCOUNTER 2025-06-04 12:44 | Emergency (ER) | payer BC, SELFPAY ==
--- OUTSIDE RECORDS SUMMARY | 2025-06-04 12:47 | XMS_ITS | Clinical Summary ---
Author Organization [email or web address] Address [address] [place] [address] Care Team Providers Care Computer Bookkeeper Name Role Phone Oswaldo Burnett MD Primary Care Provider + [phone] Source Comments You are receiving this document as you are listed as the primary care provider,follow-up provider, or the patient has been referred to you for consultation.This is in compliance with the Medicare and[facility] EHR Incentive Program,which states Providers who transition their patient to another setting of careor provider of care or refers their patient to another provider of care shouldprovide summary care record for each transition of care or referral. 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 Oxygen Saturation 97% 11/02/2024 12:42 AM 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 Inhaled Oxygen Concentration - - Weight 156 kg (344 lb) 11/01/2024 10:43 PM 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 Height 185.4 cm (6' 1) 11/01/2024 10:43 PM 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 Body Mass Index 45.39 11/01/2024 10:43 PM 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 Plan of Treatment Health Maintenance Due Date Last Done Comments Colon Cancer Screening Plan Due 1957 Diabetes Screening- (based o n age and BMI) 1957 Hep C Screening (Preventive Services) 1955 Mammogram 1955 Adult Preventive Visit 1975 DTaP/Tdap/Td Vaccine (1 - Tdap) 1976 Cholesterol 2002 Pneumococcal Vaccine 50+ Yrs (1 of 1 - PCV) 2007 RSV Vaccine (1 - Risk 50-74 years 1-dose series) 2007 Zoster/Shingles Vaccine (1 of 2) 2007 Dexa 2022 COVID-19 Vaccine (1 - 2023-2 5 season) 2025 Influenza Vaccine (#1) 2025 HepA Vaccine Aged Out No longer [...] on patient's age to complete this topic Insurance MEDICARE PART A [facility] Care Teams Computer Bookkeeper Relationship Specialty Start Date End Date Oswaldo Burnett MD [address] [place] [address] PCP - General 11/02/24
[2025-06-04 12:48] VITALS: BP 169/98; PULSE 106; RESP 18; TEMP 36.6; O2SAT 96; BMI 46.7
--- NOTE | 2025-06-04 13:25 | ED.GENADULT ---
HPI - General Adult General Chief complaint: Laceration/Wound Stated complaint: Cut thumb on left hand Time Seen by Provider: 06/04/25 13:25 History of Present Illness HPI narrative: Patient presents to the emergency department complaining of a laceration to her left thumb . Patient states this happened this morning. Patient cut herself on a lamp. 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 Patient denies being on blood thinners . 70-year-old woman presenting to the emergency department with concern of a laceration of the thumb of left hand. Was at school this morning and reached into a drawer. Apparently there was a broken lamp/lab base there on which she cut her finger. Wrapped it up very tightly as was bleeding heavily. Number of layers Band-Aids. Not having significant pain. Is not anticoagulated. Sensation reportedly intact. Does not think there is any retained foreign body. Related Data Home Medications ?Medication ?Instructions ?Recorded ?Confirmed prazosin 1 mg capsule 1 mg PO .Bedtime 09/07/22 06/04/25 quetiapine 50 mg tablet 50 - 100 mg PO .Bedtime 09/07/22 06/04/25 divalproex 500 mg tablet,extended 500 mg PO .Bedtime 06/02/23 06/04/25 release 24 hr olanzapine 10 mg tablet 10 mg PO QDAY 01/22/25 06/04/25 Previous Rx's ?Medication ?Instructions ?Recorded furosemide 20 mg tablet 20 mg PO QDAY PRN edema #30 tabs 04/13/23 albuterol sulfate 90 mcg/actuation 2 puff inhalation Q4-6H PRN 02/01/24 aerosol inhaler shortness of breath or wheezing #6.7 grams cetirizine 10 mg tablet (All Day 10 mg PO QDAY #90 tabs 02/01/24 Allergy (cetirizine)) Allergies Allergy/AdvReac Type Severity Reaction Status Date / Time Quinolones Allergy Severe hives, Verified 06/04/25 12:53 syncope,delerium tramadol Allergy Severe respiratory Verified 06/04/25 12:53 distress per past med rec received Sulfa (Sulfonamide Allergy Mild Verified 06/04/25 12:53 Antibiotics) tetracycline Allergy Mild Rash Verified 06/04/25 12:53 Cephalosporins Allergy Unknown Verified 06/04/25 12:53 piroxicam AdvReac Intermediate Nausea Verified 06/04/25 12:53 Review of Systems Status of ROS: Reports: 6 or more systems reviewed and unremarkable except as noted in History and below PFSH PFSH Medical History Screening due ?Z13.9 - Encounter for screening, unspecified (ICD-10) Surgical History Status post total replacement of right hip ?Z96.641 - Presence of right artificial hip joint (ICD-10) Status post breast lumpectomy ?Z98.890 - Other specified postprocedural states (ICD-10) History of right breast biopsy (02/12/13) ?Z98.890 - Other specified postprocedural states (ICD-10) History of hysterectomy (11/06/12) ?Z90.710 - Acquired absence of both cervix and uterus (ICD-10) History of appendectomy (11/06/12) ?Z90.49 - Acquired absence of other specified parts of digestive tract (ICD-10) Family History Father Prostate cancer Diabetes Pacemaker Mother Urethral cancer Brother Alcohol dependence Drug dependence Social History Narrative: From 11/28/24 OV note: , 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 Another daughter in [place]. Sounds like a bit astranged from siblings, both parents . What is your current living situation?: I presently have a place to live Problems where you live: no known problems In the past 12 months, utilities in danger of being shut off: no In past 12 months, lack of transportation kept you from medical appts, meetings, work, or getting things needed for daily living: no In the past 12 mos, have been you worried that your food would run out before you had money to buy more?: never true In the past 12 mos, the food you bought just didn't last and you didn't have money to buy more?: never true Smoking Status: Never smoker How often do you have a drink containing alcohol: monthly or less How often do you have six or more drinks on one occasion: Never AUDIT-C Alcohol total score: 1 Non-prescribed substance use: denies use How often does anyone, including family, friends and others, physically hurt you: never How often does anyone, including family, friends and others, insult or talk down to you: never How often does anyone, including family, friends and others, threaten you with harm: never How often does anyone, including family, friends and others, scream or curse at you: never service: No Exam Narrative: Exam Narrative: Very pleasant. NAD. Breathing easily. Examination of the left thumb in question does show a number layers of Band-Aids visible. Sensation intact distally. Appears well perfused. Const: Vital Signs, click to edit/add: Vital Signs - 24 hr 06/04/25 12:48 Temperature 97.8 F Pulse Rate [Right Pulse Oximeter] 106 H Respiratory Rate 18 Blood Pressure [Ri ght Forearm] 169/98 H Pulse Oximetry 96 Oxygen Delivery Me thod Room Air Documenting provider has reviewed patient's vital signs: yes Course Vital Signs Vital signs: Initial Vital Signs Temperature 97.8 F 06/04/25 12:48 Temperature Source Temporal Artery Scan 06/04/25 12:48 Pulse Rate 106 H 06/04/25 12:48 Pulse Rhythm Regular 06/04/25 12:48 Pulse Strength 3+ Normal 06/04/25 12:48 Respiratory Rate 18 06/04/25 12:48 Blood Pressure 169/98 H 06/04/25 12:48 Blood Pressure Mean 121 H 06/04/25 12:48 Blood Pressure Position Sitting 06/04/25 12:48 Pulse Oximetry 96 06/04/25 12:48 Oxygen Delivery Method Room Air 06/04/25 12:48 Vital Signs Temperature 97.8 F 06/04/25 12:48 Pulse Rate 106 H 06/04/25 12:48 Respiratory Rate 18 06/04/25 12:48 Blood Pressure 169/98 H 06/04/25 12:48 Pulse Oximetry 96 06/04/25 12:48 Oxygen Delivery Method Room Air 06/04/25 12:48 Temperature 97.8 F 06/04/25 12:48 Pulse Rate 106 H 06/04/25 12:48 Respiratory Rate 18 06/04/25 12:48 Blood Pressure 169/98 H 06/04/25 12:48 Pulse Oximetry 96 06/04/25 12:48 Oxygen Delivery Method Room Air 06/04/25 12:48 Medical Decision Making MDM Narrative Medical decision making narrative: Given the degree of bleeding that had been described I thought we might just anesthetize prior to removing bandage. Did inject with Sensorcaine total of 2.5 mL in a ring block. Returned with materials anticipating need for suturing. Anesthesia reportedly achieved. I go ahead and removed this Band-Aid. Cleansed further with Hibiclens and water. There is a subtly triangular mostly linear laceration or shaving of tissue through the pad of the finger. It is not exactly full dermal and with light manipulation now is no longer bleeding. Attempting to approximate further it does not change much. This is not full dermal laceration and/or debris together would have to undermine tissues and further exacerbate bleeding. Bleeding has stopped apparently and so I think best not to intervene in this manner. Placed antibiotic ointment and Band-Aid and light pressure dressing with Maxine gauze. Supplied with finger Stax splints as well for protection over the next week. See patient discharge plan for further discussion Since this is more of a shave in this area, you'll need to have skin regrown by secondary intention. Elevation and ibuprofen for comfort. If not too uncomfortable, would just leave this current dressing on until tomorrow morning. Keep moist with antibiotic ointment over the next 5 days or so. Can probably then transition to white petroleum jelly. You will likely see some whitish tissue regrowing. Try not to scrape this off. It might be necessary to moisten Band-Aid to remove rather than peel off underlying regrowing tissue. Protect with Band-Aid and a finger Stax splint as dispensed. Watch for spreading redness after 2 days accompanied by heat, swelling, marked increase in pain, purulent drainage. Medical Records Medical records reviewed: Yes I reviewed the patient's medical records Discharge Plan Discharge Clinical Impression: Laceration of thumb Patient Disposition: Home, Self-Care Instructions: Laceration (ED) Additional Instructions: Since this is more of a shave in this area, you'll need to have skin regrown by secondary intention. Elevation and ibuprofen for comfort. If not too uncomfortable, would just leave this current dressing on until tomorrow morning. Keep moist with antibiotic ointment over the next 5 days or so. Can probably then transition to white petroleum jelly. You will likely see some whitish tissue regrowing. Try not to scrape this off. It might be necessary to moisten Band-Aid to remove rather than peel off underlying regrowing tissue. Protect with Band-Aid and a finger Stax splint as dispensed. Watch for spreading redness after 2 days accompanied by heat, swelling, marked increase in pain, purulent drainage. Prescriptions: No Action prazosin 1 mg capsule 1 mg PO .Bedtime quetiapine 50 mg tablet 50 - 100 mg PO .Bedtime Rx Instructions: 1-2 tablets at bedtime divalproex 500 mg tablet extended release 24 hr 500 mg PO .Bedtime albuterol sulfate 90 mcg/actuation HFA aerosol inhaler 2 puff inhalation Q4-6H PRN (Reason: shortness of breath or wheezing) Qty: 6.7 1RF cetirizine [All Day Allergy (cetirizine)] 10 mg tablet 10 mg PO QDAY Qty: 90 3RF olanzapine 10 mg tablet 10 mg PO QDAY furosemide 20 mg tablet 20 mg PO QDAY PRN (Reason: edema) Qty: 30 0RF Follow Up/Referrals: Oswaldo Burnett MD [Primary Care Provider, Family Practice] Stand Alone Forms: [email or web address] Info Instructions
== END 2025-06-04 14:46 | disposition home or self-care (01) ==
PROVIDERS: Emergency Provider Family Medicine; PCP Family Medicine
DX: S61.012A Laceration without foreign body of left thumb without damage to nail, initial encounter (principal); W26.9XXA Contact with unspecified sharp object(s), initial encounter
CPT/HCPCS: 29130; 99282; 99284

== ENCOUNTER 2025-08-01 10:42 | Emergency (ER) | payer BC, SELFPAY ==
[2025-08-01 11:01] VITALS: BP 177/92; PULSE 105; RESP 20; TEMP 36.4; O2SAT 96
--- NOTE | 2025-08-01 11:20 | ED.GENADULT ---
HPI - General Adult General Date Seen: 08/01/25 Chief complaint: Extremity Pain/Injury, Lower Stated complaint: R leg cellulitis Time Seen by Provider: 08/01/25 11:19 History of Present Illness HPI narrative: 70-year-old female who has a past medical history of lymphedema, morbid obesity, history of right leg cellulitis, bipolar, chronic low back pain, lumbar radiculopathy, history of TIA, tobacco use, restless legs, PTSD, GERD, Per medical record... Was in the ER August 2024 for bilateral leg swelling and pain and had a right lower extremity cellulitis. White count was 6.9, BUN was 16, creatinine 0.4. And terminal proBNP was 46. She was put on clindamycin 450 mg p.o. t.i.d.. Was in the ER in January for a cat bite. Put on Augmentin. Most recently seen in the primary care clinic on July 10 for right lower extremity cellulitis. Put on clindamycin 450 mg t.i.d. for 10 days. She notes that while on the clindamycin she did have some improvement in the cellulitis on her right salcedo. She finished it about 10 or 12 days ago on notes that it has been getting worse for the past week or so. She has been hoping that with time and elevation of we get better but just not getting better. It has now spread to involve about the distal half of her salcedo. It is not as bad currently as it had been prior to going to see Dr. Robertson last month. At that time it did spread all the way from the top of foot up to the top of her knee. Over the past several days, she has had some intermittent subjective fevers and chills. No high fevers. No weakness. No redness or pain moving proximal to the knee. She notes that she has chronic lymphedema and she is actually scheduled to see the physical therapy clinic next week to get fit for compression stockings. In the years past she has tried Terry wraps, compression stockings, but they tend to cause too much compression and are too painful to wear. 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 Related Data Home Medications ?Medication ?Instructions ?Recorded ?Confirmed prazosin 1 mg capsule 1 mg PO .Bedtime 09/07/22 08/01/25 divalproex 500 mg tablet,extended 500 mg PO .Bedtime 06/02/23 08/01/25 release 24 hr olanzapine 10 mg tablet 10 mg PO QDAY 01/22/25 08/01/25 Previous Rx's ?Medication ?Instructions ?Recorded furosemide 20 mg tablet 20 mg PO QDAY PRN edema #30 tabs 04/13/23 albuterol sulfate 90 mcg/actuation 2 puff inhalation Q4-6H PRN 02/01/24 aerosol inhaler shortness of breath or wheezing #6.7 grams cetirizine 10 mg tablet (All Day 10 mg PO QDAY #90 tabs 02/01/24 Allergy (cetirizine)) amoxicillin 875 mg-potassium 1 tab PO BID #20 tabs 08/01/25 clavulanate 125 mg tablet doxycycline monohydrate 100 mg 100 mg PO BID #20 caps 08/01/25 capsule Allergies Allergy/AdvReac Type Severity Reaction Status Date / Time Quinolones Allergy Severe hives, Verified 08/01/25 11:06 syncope,delerium tramadol Allergy Severe respiratory Verified 08/01/25 11:06 distress per past med rec received Sulfa (Sulfonamide Allergy Mild Verified 08/01/25 11:06 Antibiotics) tetracycline Allergy Mild Rash Verified 08/01/25 11:06 Cephalosporins Allergy Unknown Verified 08/01/25 11:06 piroxicam AdvReac Intermediate Nausea Verified 08/01/25 11:06 [facility] Medical History Trochanteric bursitis of left hip ?M70.62 - Trochanteric bursitis, left hip (ICD-10) Surgical History Status post repair of ventral hernia ?Z98.890 - Other specified postprocedural states (ICD-10) ?Z87.19 - Personal history of other diseases of the digestive system (ICD-10) Status post nasal septoplasty ?Z98.890 - Other specified postprocedural states (ICD-10) Status post cervical spinal fusion ?Z98.1 - Arthrodesis status (ICD-10) Status post total replacement of right hip ?Z96.641 - Presence of right artificial hip joint (ICD-10) Status post breast lumpectomy ?Z98.890 - Other specified postprocedural states (ICD-10) History of right breast biopsy (02/12/13) ?Z98.890 - Other specified postprocedural states (ICD-10) History of hysterectomy (11/06/12) ?Z90.710 - Acquired absence of both cervix and uterus (ICD-10) History of appendectomy (11/06/12) ?Z90.49 - Acquired absence of other specified parts of digestive tract (ICD-10) Family History Father Prostate cancer Diabetes Pacemaker Mother Urethral cancer Brother Alcohol dependence Drug dependence Social History Narrative: From 11/28/24 OV note: , 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 Two children, Grandchild in [place], (2024) one daughter is living with her to save money to go back to school. Another daughter in [place]. Sounds like a bit astranged from siblings, both parents . What is your current living situation?: I presently have a place to live Problems where you live: no known problems In the past 12 months, utilities in danger of being shut off: no In past 12 months, lack of transportation kept you from medical appts, meetings, work, or getting things needed for daily living: no In the past 12 mos, have been you worried that your food would run out before you had money to buy more?: never true In the past 12 mos, the food you bought just didn't last and you didn't have money to buy more?: never true Smoking Status: Never smoker Second hand tobacco smoke exposure: No How often do you have a drink containing alcohol: monthly or less How often do you have six or more drinks on one occasion: Never AUDIT-C Alcohol total score: 1 Non-prescribed substance use: denies use How often does anyone, including family, friends and others, physically hurt you: never How often does anyone, including family, friends and others, insult or talk down to you: never How often does anyone, including family, friends and others, threaten you with harm: never How often does anyone, including family, friends and others, scream or curse at you: never service: No Exam Narrative: Exam Narrative: Constitutional: Appears well-developed and well-nourished. Active. Non-toxic appearing. Very polite. HENT: Head: Atraumatic. No signs of injury. Nose: No nasal discharge. Mouth/Throat: Mucous membranes are moist. Pharynx is normal. Tonsils symmetric. Uvula midline. Airway patent. Eyes: Conjunctivae normal and EOM are normal. Pupils are equal, round, and reactive to light. Right eye exhibits no discharge. Left eye exhibits no discharge. No icterus. Neck: Normal range of motion. Neck supple. No adenopathy. No stridor. Cardiovascular: Normal rate and regular rhythm. No murmur heard. No murmurs, rubs, or gallops. Brisk capillary refill strong DP and PT pulse. Normal cap refill. Pulmonary/Chest: Effort normal. No stridor. No respiratory distress. Musculoskeletal: Normal range of motion. 3+ edema on the right lower extremity, 2+ on the left lower extremity. No deformity. Normal range of motion in her knee ankle, toes and foot. She does have an area of redness and warmth affecting her right distal salcedo that extends from the anterior ankle about half for 2/[address] the salcedo. And has not indistinct edge which gradually fades normal. In the center of this there is more prominent erythema and warmth. There is some blistering there but no purulent drainage or active fluid drainage. No abscess. No laceration or abrasion. Consistent with a cellulitis. I do not see any ascending lymphangitis. Neurological: Alert. Normal strength. No cranial nerve deficit or sensory deficit. Coordination normal. GCS eye subscore is 4. GCS verbal subscore is 5. GCS motor subscore is 6. Skin: Skin is warm. No rash noted. Const: Vital Signs, click to edit/add: Vital Signs - 24 hr 08/01/25 11:01 Temperature 97.5 F L Pulse Rate [Pulse Oximeter] 105 H Respiratory Rate 20 Blood Pressure [Ri ght Forearm] 177/92 H Pulse Oximetry 96 Oxygen Delivery Me thod Room Air Course Vital Signs Vital signs: Initial Vital Signs Temperature 97.5 F L 08/01/25 11:01 Temperature Source Temporal Artery Scan 08/01/25 11:01 Pulse Rate 105 H 08/01/25 11:01 Respiratory Rate 20 08/01/25 11:01 Blood Pressure 177/92 H 08/01/25 11:01 Blood Pressure Mean 120 H 08/01/25 11:01 Blood Pressure Position Sitting 08/01/25 11:01 Pulse Oximetry 96 08/01/25 11:01 Oxygen Delivery Method Room Air 08/01/25 11:01 Vital Signs Temperature 97.5 F L 08/01/25 11:01 Pulse Rate 105 H 08/01/25 11:01 Respiratory Rate 20 08/01/25 11:01 Blood Pressure 177/92 H 08/01/25 11:01 Pulse Oximetry 96 08/01/25 11:01 Oxygen Delivery Method Room Air 08/01/25 11:01 Temperature 97.5 F L 08/01/25 11:01 Pulse Rate 105 H 08/01/25 11:01 Respiratory Rate 20 08/01/25 11:01 Blood Pressure 177/92 H 08/01/25 11:01 Pulse Oximetry 96 08/01/25 11:01 Oxygen Delivery Method Room Air 08/01/25 11:01 Medical Decision Making [facility] Narrative Medical decision making narrative: This patient presents for evaluation of skin redness affecting her right anterior salcedo. She has a history of lymphedema and recurrent cellulitis affecting that right leg. She had been on a course of clindamycin just less than a month ago but is now having recurrence of redness and infection.. The history, physical exam is consistent with cellulitis. There do not appear at this time to be any complication of cellulitis including abscess, necrotizing fascitis, lymphangitis, lymphadenitis, osteomyelitis, sepsis, or shock. The patient is not immunosuppressed or diabetic. Supportive outpatient management is indicated with antibiotics. She is comfortable this plan of care. There is nothing draining pus that would allow us to obtain a culture today. She is afebrile, hemodynamically stable. She did have a sinus tachycardia at presentation but heart rate is normal although she is resting in bed. No evidence for sepsis. At this point I do not think she would benefit from labs, IV antibiotics. Will start her on different antibiotics. Will put her on Augmentin to cover for typical skin shahriar on her lower extremity as well as doxycycline to cover for possible community-acquired MRSA. She has allergies to sulfa and cephalosporins and fluoroquinolones (she wonders whether not these are true allergies, but at this time would the prudent to avoid those categories of antibiotics). patient is instructed to follow-up with primary care physician to ensure no progression and rapid resolution and given precautions to return if high fever, spread greater than 2cm outside of the current area, worsening pain, vomiting or any other worsening. Questions answered and return precautions reviewed. Discharge Plan Discharge Clinical Impression: Cellulitis, Cellulitis of right lower leg Patient Disposition: Home, Self-Care Condition: Stable Instructions: Cellulitis (ED) Additional Instructions: As we discussed, please start on the new antibiotics today. Take them each twice daily for 10 days. If you notice increasing redness, or increasing warmth, new drainage from the infected area, or if you have worsening symptoms such as fever, chills, or weakness, please return to the ER right away to be rechecked. If you are not substantially improving within 48-72 hours, please recheck with your regular doctor or come back to the ER. Prescriptions: New amoxicillin-pot clavulanate 875-125 mg tablet 1 tab PO BID Qty: 20 0RF doxycycline monohydrate 100 mg capsule 100 mg PO BID Qty: 20 0RF No Action prazosin 1 mg capsule 1 mg PO .Bedtime divalproex 500 mg tablet extended release 24 hr 500 mg PO .Bedtime albuterol sulfate 90 mcg/actuation HFA aerosol inhaler 2 puff inhalation Q4-6H PRN (Reason: shortness of breath or wheezing) Qty: 6.7 1RF cetirizine [All Day Allergy (cetirizine)] 10 mg tablet 10 mg PO QDAY Qty: 90 3RF olanzapine 10 mg tablet 10 mg PO QDAY furosemide 20 mg tablet 20 mg PO QDAY PRN (Reason: edema) Qty: 30 0RF Follow Up/Referrals: Oswaldo Burnett MD [Primary Care Provider, Family Practice] Stand Alone Forms: [employer] Info Instructions
--- OUTSIDE RECORDS SUMMARY | 2025-08-01 11:47 | XMS_ITS | Clinical Summary ---
[facility] Address [address] [place] [address] Care Team Providers Care Meter Shop Superintendent Name Role Phone Oswaldo Burnett MD Primary Care Provider + [phone] Source Comments You are receiving this document as you are listed as the primary care provider,follow-up provider, or the patient has been referred to you for consultation.This is in compliance with the Medicare and[facility] EHR Incentive Program,which states Providers who transition their patient to another setting of careor provider of care or refers their patient to another provider of care shouldprovide summary care record for each transition of care or referral. 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 Gender Identity Not on file Sexual Orientation Not on file Last Filed Vital Signs Vital Sign Reading Time Taken Comments Blood Pressure 129/69 11/02/2024 12:42 AM COMMUNITY CHEST OFFICER Pulse 82 11/02/2024 12:43 AM COMMUNITY CHEST OFFICER Temperature 36.8 C (98.2 F) 11/01/2024 10:43 PM COMMUNITY CHEST OFFICER Respiratory Rate 20 11/01/2024 10:43 PM COMMUNITY CHEST OFFICER Oxygen Saturation 97% 11/02/2024 12:42 AM COMMUNITY CHEST OFFICER Inhaled Oxygen Concentration - - Weight 156 kg (344 lb) 11/01/2024 10:43 PM COMMUNITY CHEST OFFICER Height 185.4 cm (6' 1) 11/01/2024 10:43 PM COMMUNITY CHEST OFFICER Body Mass Index 45.39 11/01/2024 10:43 PM COMMUNITY CHEST OFFICER Plan of Treatment Health Maintenance Due Date [...] 2007 Dexa 2022 COVID-19 Vaccine (1 - 2024-2 6 season) 2025 Influenza Vaccine (#1) 2025 HepA [...] complete this topic Insurance MEDICARE PART A [facility] Care Teams Meter Shop Superintendent Relationship Specialty Start Date End Date Oswaldo Burnett MD [address] [place] [address] PCP - General 11/02/24
== END 2025-08-01 12:05 | disposition home or self-care (01) ==
LOC: ED 11:52
PROVIDERS: Emergency Provider Emergency Medicine; PCP Family Medicine
DX: L03.115 Cellulitis of right lower limb (principal); I89.0 Lymphedema, not elsewhere classified; Z88.2 Allergy status to sulfonamides; Z88.8 Allergy status to other drugs, medicaments and biological substances
CPT/HCPCS: 99283

== ENCOUNTER 2025-08-08 13:42 | Outpatient (CLI) | payer BC, SELFPAY | END 2025-08-08 13:43 | disposition home or self-care (01) | LOC: NFLDREF 13:43 | PROVIDERS: PCP Family Medicine; Visit Provider Family Medicine | DX: L03.115 Cellulitis of right lower limb (principal) | CPT/HCPCS: 80053 ==